=== PATIENT | female | born 1990 | race African-American/Black ===

== ENCOUNTER 2016-11-02 12:47 | Emergency (ER) | payer SELFPAY ==
[~2016-11-02] VITALS: Ht 172.7 cm; Wt 95.3 kg
[2016-11-02 13:05] VITALS: BP 122/70
--- NOTE | 2016-11-02 13:26 | PHYS DOC ---
Past Medical History Past Medical History: No Pertinent History Past Surgical History: No Surgical History Alcohol Use: None Drug Use: None Adult General Chief Complaint Chief Complaint: SORE THROAT [facility] HPI Patient is a 25 year old female presents to the emergency department stating that she has been having a sore throat with generalized body aches and discomfort as well as right upper abdominal pain and discomfort with nausea no vomiting and diarrhea. She states that she had had some diarrhea stools. She cannot keep track. She denies any blood being in them. She denies any fever, chills. She states that she has used NyQuil, Tylenol and ibuprofen with no relief. Patient does not appear to be in any distress at this current time. She presents to the emergency Department with her 15-year-old niece. Review of Systems Review of Systems Constitutional: Denies fever or chills [] Eyes: Denies change in visual acuity, redness, or eye pain [] HENT: Denies nasal congestion c/o sore throat [] Respiratory: Denies cough or shortness of breath [] Cardiovascular: No additional information not addressed in HPI [] GI: right upper abdominal pain, nausea, vomiting, and diarrhea [] : Denies dysuria or hematuria [] Musculoskeletal: Denies back pain or joint pain [] Integument: Denies rash or skin lesions [] Neurologic: Denies headache, focal weakness or sensory changes [] Endocrine: Denies polyuria or polydipsia [] Allergies Allergies Allergies Coded Allergies Type Severity Reaction Last Updated Verified Penicillins Allergy Severe hives 05/27/15 Yes Physical Exam Physical Exam Constitutional: Well developed, well nourished, no acute distress, non-toxic appearance. [] HENT: Normocephalic, atraumatic, bilateral external ears normal, oropharynx moist, no oral exudates, nose normal. Bilateral tympanic membranes appear to be normal, throat with tonsils enlarged no redness no exudate no erythematous noted. No anterior cervical adenopathy noted Eyes: PERRLA, EOMI, conjunctiva normal, no discharge. [] Neck: Normal range of motion, no tenderness, supple, no stridor. [] Cardiovascular:Heart rate regular rhythm, no murmur [] Lungs & Thorax: Bilateral breath sounds clear to auscultation [] Abdomen: Bowel sounds hypoactive, soft, right upper quadrant tenderness, no masses, no pulsatile masses. No rebound tenderness noted. Was tender on the right upper quadrant and epigastric area. No guarding noted Skin: Warm, dry, no erythema, no rash. [] Back: No tenderness Extremities: No tenderness, no cyanosis, no clubbing, ROM intact, no edema. [] Neurologic: Alert and oriented X 3, normal motor function, normal sensory function, no focal deficits noted. [] Psychologic: Affect normal, judgement normal, mood normal. [] Current Patient Data Vital Signs Vital Signs Date Time Temp Pulse Resp B/P (MAP) Pulse Ox O2 Delivery O2 Flow Rate FiO2 11/02/16 13:05 98.1 90 18 97 Room Air 98.1 Lab Values Laboratory Tests Test 11/02/16 13:20 Group A Streptococcus Rapid Negative (NEGATIVE) EKG EKG [] Radiology/Procedures Radiology/Procedures [][facility] [address] [place] [address] IMAGING REPORT Signed PATIENT: KAROLYN MONGE ACCOUNT: [id number] : 1990 LOCATION: ER AGE: 25 SEX: F EXAM STATUS: REG ER ORD. PHYSICIAN: YORDAN GILLESPIE APRN REASON: right upper quadrant abdominal pain PROCEDURE: ABDOMEN LTD Limited ultrasound abdomen 11/02/2016 at 1352 hours Indication: Right upper quadrant abdominal pain. Comparison: None available Technique: Sonographic imaging of the right upper quadrant was performed utilizing hahn scale and color Doppler. Findings: Liver is homogenous in echotexture without evidence for a focal mass. Liver measures 16.3 cm in length. The bladder is normal without evidence for gallstones, without gallbladder wall thickening or pericholecystic fluid. Negative sonographic Steward's sign. Common bile duct measures 3 mm. Visualized portions of the pancreas are normal. The right kidney measures 11.0 x 4.9 x 5.7 cm. There is no hydronephrosis or renal calculus. No contour deforming renal mass. No free fluid in the right upper quadrant. IVC is patent. Impression: No evidence for cholelithiasis. DICTATED and SIGNED BY: ROBERT BALDWIN MD DATE: 11/02/16 6532 CC: YORDAN GILLESPIE APRN; NO PCP; NON,STAFF ~ Course & Med Decision Making Course & Med Decision Making Pertinent Labs and Imaging studies reviewed. (See chart for details) Rapid strep was negative, ultrasound of the gallbladder was negative as well. Patient will be discharged home with recommendations to drink plenty of fluids such as water Gatorade or propel. Patient be encouraged to use warm salt water mouth rinses. Recommended patient for clear liquid diet for the next 24 hours to help with the diarrhea. Patient will be encouraged to take Tylenol or ibuprofen for pain and discomfort. Signs and symptoms to return back to emergency department as been provided. Patient agrees with discharge instructions treatment regimens and follow-up recommendations. [] Dragon Disclaimer Dragon Disclaimer This electronic medical record was generated, in whole or in part, using a voice recognition dictation system. Departure Departure Impression: Primary Impression: Pharyngitis Additional Impressions: Upper abdominal pain Diarrhea Disposition: HOME, SELF-CARE Condition: STABLE Referrals: NO PCP (PCP) Patient Instructions: Abdominal Pain (Nonspecific), Diarrhea, [id number], Diet for Diarrhea, Adult, Viral and Bacterial Pharyngitis, [id number] Additional Instructions: Your rapid strep was negative, ultrasound was negative for any gallbladder issues. Your being treated for pharyngitis as well as diarrhea. Activity as tolerated. Clear liquid diet for the next 24 hours. Drink plenty of fluids such as water Gatorade or propel. Warm salt water gargles 4 times a day and prior to bedtime. Your throat culture will be cultured out with results pending for next 2-3 days. We'll call you if the results are positive. If you're diarrhea last over than 3 or 4 days you may take Imodium over-the- counter. Follow-up to primary care physician in 3-5 days. Return back to emergency prior signs symptoms become worse. Problem Qualifiers YORDAN GILLESPIE APRN Nov 02, 2016 13:26
[2016-11-02 13:37] LABS: NEGATIVE OBC STREP NEG; POSITIVE OBC STREP POS
--- NOTE | 2016-11-02 14:19 | RAD ---
Limited ultrasound abdomen 11/02/2016 at 1352 hours Indication: Right upper quadrant abdominal pain. Comparison: None available Technique: Sonographic imaging of the right upper quadrant was performed utilizing hahn scale and color Doppler. Findings: Liver is homogenous in echotexture without evidence for a focal mass. Liver measures 16.3 cm in length. The bladder is normal without evidence for gallstones, without gallbladder wall thickening or pericholecystic fluid. Negative sonographic Steward's sign. Common bile duct measures 3 mm. Visualized portions of the pancreas are normal. The right kidney measures 11.0 x 4.9 x 5.7 cm. There is no hydronephrosis or renal calculus. No contour deforming renal mass. No free fluid in the right upper quadrant. IVC is patent. Impression: No evidence for cholelithiasis.
== END 2016-11-02 14:30 | disposition home or self-care (01) ==
LOC: ER 12:47
DX: J02.9 Acute pharyngitis, unspecified (principal); R10.11 Right upper quadrant pain; R19.7 Diarrhea, unspecified; M79.1 Myalgia; Z88.0 Allergy status to penicillin
CPT/HCPCS: 76705; 87070; 87880; 99285-25

== ENCOUNTER 2017-05-21 16:59 | Emergency (ER) | payer SELFPAY | END 2017-05-21 17:38 | disposition home or self-care (01) | LOC: ER 16:59 | DX: B34.9 Viral infection, unspecified (principal); Z88.0 Allergy status to penicillin | CPT/HCPCS: 99281 ==